=== PATIENT | female | born 1975 | race African-American/Black ===

== ENCOUNTER 2024-05-16 21:24 | Emergency (ER) | payer SELFPAY ==
[~2024-05-16] VITALS: Ht 160 cm; Wt 92.4 kg
[2024-05-16 22:20] VITALS: O2SAT 99
[2024-05-16] MEDS ORDERED: AMLODIPINE 10MG TABLET PO ONE (22:45)
[2024-05-16] MEDS ORDERED: IBUPROFEN 600MG TABLET PO ONE (22:45)
[2024-05-16] MEDS: AMLODIPINE 5MG TABLET PO NR (22:57)
[2024-05-16] MEDS: IBUPROFEN 600MG TABLET PO NR (22:59)
[2024-05-16 23:00] VITALS: BP 155/75; PULSE 88; RESP 20; TEMP 36.78072; O2SAT 99
[2024-05-16 23:06] LABS: BASOPHILS % 0.4 % (0.0-2.0); EOSINOPHILS % 3.2 % (0.0-5.0); HEMATOCRIT. 26.1 % (36.0-48.0); HEMOGLOBIN. 7.9 g/dL (12.0-16.0); LYMPHOCYTES % 34.4 % (20.0-50.0); MEAN CORPUSCULAR HEMOGLOBIN 17.6 pg (28.0-32.0); MEAN CORPUSCULAR HGB CONC 30.2 g/dL (31.0-37.0); MEAN PLATELET VOLUME 8.6 fl (7.4-10.4); PLATELET 493 x1000/uL (130-400); RED CELL DISTRIBUTION WIDTH 20.8 % (11.6-14.6); WHITE BLOOD COUNT 9.3 x1000/uL (4.5-11.0)
[2024-05-16 23:14] LABS: ADD RBC MORPHOLOGY YES; DIFFERENTIAL COMMENT 1
[2024-05-16 23:17] LABS: CHLORIDE 106 mEq/L (98-107); POTASSIUM 3.2 mEq/L (3.5-5.1); SODIUM 136 mEq/L (136-145)
[2024-05-16 23:18] LABS: CARBON DIOXIDE 26 mEq/L (21-32)
[2024-05-16 23:19] LABS: CALCIUM 9.1 mg/dL (8.7-10.4)
[2024-05-16 23:22] LABS: ANISOCYTOSIS 2+; HYPOCHROMASIA 3+; MICROCYTOSIS 3+; PLATELET ESTIMATE INCREASED
[2024-05-16 23:23] LABS: CREATININE 0.8 mg/dL (0.6-1.0); GLUCOSE 137 mg/dL (70-105); UREA NITROGEN BLOOD 9 mg/dL (9-23)
[2024-05-16] MEDS: POTASSIUM CHLORIDE 20MEQ TABLET SR PO ONE (23:30)
[2024-05-16] MEDS ORDERED: AMLO5TAB88 MT (23:36)
[2024-05-16] MEDS ORDERED: FERR324T4 MT (23:36)
== END 2024-05-16 23:55 | disposition home or self-care (01) ==
LOC: ER 21:24
DX: I10 Essential (primary) hypertension (principal); B34.9 Viral infection, unspecified; D64.9 Anemia, unspecified; E87.6 Hypokalemia; I51.7 Cardiomegaly; Z88.2 Allergy status to sulfonamides; Z98.890 Other specified postprocedural states; Z20.822 Contact with and (suspected) exposure to COVID-19
CPT/HCPCS: 36415; 71045; 80048; 85025; 87426; 87804; 99284